=== PATIENT | female | born 1935 | race Caucasian/White ===

== ENCOUNTER 2017-04-28 10:23 | Emergency (ER) | payer MEDICARE, OTHER ==
[2017-04-28] MEDS ORDERED: HYDROmorphone 1 MG/ML Syringe IVPUSH ONE ×2 (10:32→10:54)
[2017-04-28] MEDS ORDERED: Sodium Chloride 0.9% 10 ML Syringe FLUSH PRN (10:32)
[2017-04-28] MEDS: Sodium Chloride 0.9% 1,000 ML IV SCH ×2 (10:45→12:00)
[2017-04-28] MEDS: Ondansetron 4 MG/2 ML SDV IVPUSH ONE ×2 (10:52→11:06)
[2017-04-28] MEDS ORDERED: Ondansetron 4 MG/2 ML SDV IVPUSH ONE (10:59)
[2017-04-28] MEDS ORDERED: Scopolamine 1.5 MG Transdermal Patch TRDERM ONE (11:02)
[2017-04-28] MEDS ORDERED: fentaNYL 100 MCG/2 ML SDV IVPUSH ONE (11:34)
[2017-04-28 11:39] LABS: CHLORIDE,CL 103 mmol/L (98-107); SODIUM,NA 140 mmol/L (136-145)
[2017-04-28] MEDS ORDERED: Iopamidol 612 MG/ML 100 ML Bottle IVPUSH ONE (11:43)
[2017-04-28] MEDS: Sodium Chloride 0.9% 500 ML IV ONE ×2 (12:00→14:03)
[2017-04-28] MEDS ORDERED: Promethazine Topical Gel 0.5 ML Syringe TOP ONE (12:28)
--- NOTE | 2017-04-28 12:49 | EDM.PDOC ---
ED HPI GENERAL MEDICAL PROBLEM - General Chief Complaint: Abdominal Pain Stated Complaint: LEFT SIDE PAIN Time Seen by Provider: 04/28/17 10:40 Source of Information: Reports: Patient History Limitations: Reports: No Limitations - History of Present Illness INITIAL COMMENTS - FREE TEXT/NARRATIVE: Patient is brought in by family for a sudden onset of nausea vomiting and dizziness. Patient states this started approximately 2 hours ago. Projectile vomiting has been occurring every 5-10 minutes. She is complaining of left upper quadrant pain radiating to her back. She states that she's had loose stools for the last month. Has not followed up with anyone regarding that. States this is a chronic issue when she eats. The discomfort and pain today is completely different than she is ever experience. She denies having any urinary frequency, hesitancy, or discharge. She states she is extremely dizzy when she has vomiting. Does have a history of vertigo motion sickness and vehicles but she feels this is different today. Denies any recent illnesses including fever chills body aches cough congestion. Onset: Sudden Onset Date: 04/28/17 Left Abdomen Pain Score (Numeric/FACES): 10 - Related Data Allergies Allergy/AdvReac Type Severity Reaction Status Date / Time atorvastatin calcium Allergy Muscle Verified 04/28/17 11:28 [From Lipitor] Aches VITAMIN B12 Allergy Hives Uncoded 08/22/15 10:04 Home Meds: Home Meds Levothyroxine [Synthroid] 50 mcg PO DAILY 12/14/14 [History] Aspirin [Halfprin] 81 mg PO DAILY 08/18/15 [History] Calcium Citrate/Vitamin D3 [Calcium Citrate + D] 1 tab PO DAILY 08/18/15 [ History] Fish Oil/[place]-3 Fatty Acids [Fish Oil 1,000 MG] 1,000 mg PO DAILY 08/18/15 [ History] Timolol Maleate [Timoptic 0.5% Ophth Soln] 1 drop EYEBOTH DAILY 08/18/15 [ History] Past Medical History HEENT History: Reports: Glaucoma Cardiovascular History: Reports: High Cholesterol Respiratory History: Reports: None Gastrointestinal History: Reports: GERD Genitourinary History: Reports: Renal Calculus Musculoskeletal History: Reports: Back Pain, Chronic Neurological History: Reports: None Psychiatric History: Reports: None Endocrine/Metabolic History: Reports: Hypothyroidism Hematologic History: Reports: None Immunologic History: Reports: None Oncologic (Cancer) History: Reports: Basal Cell Carcinoma Dermatologic History: Reports: None - Past Surgical History HEENT Surgical History: Reports: Cataract Surgery Social & Family History - Tobacco Use Smoking Status *Q: Never Smoker Used Tobacco, but Quit: No Second Hand Smoke Exposure: No - Alcohol Use Days Per Week of Alcohol Use: 0 Number of Drinks Per Day: 0 Total Drinks Per Week: 0 - Recreational Drug Use Recreational Drug Use: No Drug Use in Last 12 Months: No ED ROS GENERAL - Review of Systems Review Of Systems: See Below Constitutional: Reports: No Symptoms HEENT: Reports: No Symptoms Respiratory: Reports: No Symptoms Cardiovascular: Reports: No Symptoms GI/Abdominal: Reports: Nausea, Vomiting : Reports: No Symptoms Musculoskeletal: Reports: No Symptoms Skin: Reports: No Symptoms Neurological: Reports: No Symptoms ED EXAM, GENERAL - Physical Exam Exam: See Below Exam Limited By: No Limitations General Appearance: Alert, WD/WN, Moderate Distress Respiratory/Chest: No Respiratory Distress, Lungs Clear, Normal Breath Sounds, No Accessory Muscle Use, Chest Non-Tender Cardiovascular: Normal Peripheral Pulses, Regular Rate, Rhythm, No Edema, No Gallop, No JVD, No Murmur, No Rub GI/Abdominal: Guarding, Tender. No: Distended, Rigid, Rebound, Abnormal Bowel Sounds, Mass Back Exam: Normal Inspection, CVA Tenderness (L) Extremities: Normal Inspection, Normal Range of Motion, Non-Tender, No Pedal Edema, Normal Capillary Refill Neurological: Alert, Oriented, CN II-XII Intact, Normal Cognition Psychiatric: Normal Affect, Normal Mood Skin Exam: Warm, Dry, Intact, Normal Color, No Rash Course - Vital Signs Last Recorded V/S: Last Vital Signs Temp 36.2 C 04/28/17 10:30 Pulse 66 04/28/17 13:21 Resp 16 04/28/17 13:21 BP 168/89 H 04/28/17 13:21 Pulse Ox 99 04/28/17 13:21 - Orders/Labs/Meds Labs: Laboratory Tests 04/28/17 04/28/17 04/28/17 Range/Units 11:13 11:13 11:13 WBC 8.5 (4.0-10.0) x10^3/uL RBC 4.46 (4.00-5.50) x10^6/uL Hgb 13.4 (12.0-16.0) g/dL Hct 40.4 (33.0-47.0) % MCV 90.6 (78.0-93.0) fL MCH 30.0 (26.0-32.0) pg MCHC 33.2 (32.0-36.0) g/dL RDW Coeff of Ghislaine 13.7 (10.0-15.0) % Plt Count 214 (130-400) x10^3/uL Neut % (Auto) 76.7 (50.0-80.0) % Lymph % (Auto) 15.3 L (25.0-50.0) % [place] % (Auto) 7.3 (2.0-11.0) % Eos % (Auto) 0.5 (0.0-4.0) % Baso % (Auto) 0.2 (0.2-1.2) % Sodium 140 (136-145) mmol/L Potassium 3.8 (3.5-5.1) mmol/L Chloride 103 (98-107) mmol/L Carbon Dioxide 24 (21-32) mmol/L BUN 26 H (7-18) mg/dL Creatinine 0.9 (0.55-1.02) mg/dL Est Cr Clr Drug Dosing TNP Estimated GFR (MDRD) > 60 Glucose 140 H (74-106) mg/dL Lactic Acid 2.0 (0.4-2.0) mmol/L Calcium 8.6 (8.5-10.1) mg/dL Corrected Calcium 9.08 (8.5-10.1) mg/dL Total Bilirubin 1.0 (0.2-1.0) mg/dL AST 15 (15-37) U/L ALT 22 (14-59) U/L Alkaline Phosphatase 71 (46-116) U/L Total Protein 7.4 (6.4-8.2) g/dL Albumin 3.4 (3.4-5.0) g/dL Globulin 4.0 Albumin/Globulin Ratio 0.85 Meds: Medications Discontinued Medications Generic Name Dose Route Start Last Admin Trade Name Freq PRN Reason Stop Dose Admin Fentanyl 50 mcg 04/28/17 11:34 04/28/17 11:45 Sublimaze IVPUSH 04/28/17 11:35 50 mcg ONETIME ONE Administration Hydromorphone HCl 0.5 mg 04/28/17 10:32 04/28/17 10:52 Dilaudid IVPUSH 04/28/17 10:33 0.5 mg ONETIME ONE Administration Hydromorphone HCl 0.5 mg 04/28/17 10:54 04/28/17 10:57 Dilaudid IVPUSH 04/28/17 10:55 0.5 mg ONETIME ONE Administration Sodium Chloride 1,000 mls @ 125 mls/hr 04/28/17 11:00 04/28/17 12:00 Normal Saline IV 125 mls/hr ASDIRECTED LOUISE Administration Sodium Chloride 500 mls @ 500 mls/hr 04/28/17 12:28 04/28/17 12:00 Normal Saline IV 04/28/17 13:27 500 mls/hr ONETIME ONE Administration Iopamidol 100 ml 04/28/17 11:43 04/28/17 12:11 Isovue-300 (61%) IVPUSH 04/28/17 11:44 100 ml ONETIME ONE Administration Metoclopramide HCl 5 mg 04/28/17 13:02 04/28/17 13:13 Reglan IVPUSH 04/28/17 13:03 5 mg ONETIME ONE Administration Ondansetron HCl 4 mg 04/28/17 10:30 04/28/17 11:06 Zofran IVPUSH 04/28/17 10:31 4 mg ONETIME ONE Administration Ondansetron HCl 4 mg 04/28/17 10:59 04/28/17 13:08 Zofran IVPUSH 04/28/17 11:00 Not Given ONETIME ONE Promethazine HCl 0.5 ml 04/28/17 12:28 Phenergan TOP 04/28/17 12:29 ASDIRECTED ONE Scopolamine 1.5 mg 04/28/17 11:02 04/28/17 11:11 Transderm-Scop TRDERM 04/28/17 11:03 1.5 mg Q72H ONE Administration Sodium Chloride 10 ml 04/28/17 10:32 Saline Flush FLUSH ASDIRECTED PRN Keep Vein Open - Radiology Interpretation Free Text/Narrative:: Hydroureteronephrosis Departure - Departure Time of Disposition: 13:50 Disposition: DC/Tfer to Acute Hospital 02 Condition: Fair Clinical Impression: Hydroureteronephrosis - Discharge Information Referrals: Ale Callejas DO [Primary Care Provider] - Forms: ED Department Discharge, Interfacility Transfer EMTALA - Assessment/Plan Plan: 1. IV insertion 2. Antinausea IV pain management provided in the ER 3. Labs completed in the ER 4. CT completed in the ER 5. Consultation with the Center urology regarding CT results 6. Pt will be transferred to Dr. Lizarraga at [facility] in [place]: no further orders or recommendations. Will no fever/infection appreance will not start abx treatment at this time. 7. 1L bolus completed. 2L controlled rate started prior to transport.
[2017-04-28] MEDS ORDERED: Metoclopramide 10 MG/2 ML SDV IVPUSH ONE (13:02)
[2017-04-28 13:22] VITALS: BP 168/89
== END 2017-04-28 13:50 | disposition short-term general hospital (02) ==
LOC: VM.ED 10:23
DX: N13.2 Hydronephrosis with renal and ureteral calculous obstruction (principal); E78.00 Pure hypercholesterolemia, unspecified; E03.9 Hypothyroidism, unspecified; Z88.8 Allergy status to other drugs, medicaments and biological substances; Z79.82 Long term (current) use of aspirin; Z79.899 Other long term (current) drug therapy
CPT/HCPCS: 36415; 74177; 80053; 83605; 85025; 96361; 96374; 96375; 99285; A9270-GY; J1170; J2405; J2765; J3010; J7030; J7040; Q9967

== ENCOUNTER 2018-06-28 17:01 | Emergency (ER) | payer MEDICARE, OTHER ==
[2018-06-28] MEDS ORDERED: Nitroglycerin 0.4 MG Tab.SL SL PRN ×2 (17:20→18:16)
[2018-06-28] MEDS ORDERED: Aspirin 81 MG Tab.Chew PO ONE (17:21)
[2018-06-28] MEDS ORDERED: Sodium Chloride 0.9% 10 ML Syringe FLUSH PRN (17:37)
[2018-06-28 18:02] LABS: CHLORIDE,CL 104 mmol/L (98-107); SODIUM,NA 142 mmol/L (136-145)
[2018-06-28 18:03] LABS: ANION GAP 16.2 mmol/L (10-20)
--- NOTE | 2018-06-28 18:21 | EDM.PDOC ---
ED HPI GENERAL MEDICAL PROBLEM - General Chief Complaint: Chest Pain Stated Complaint: CHEST PAIN JAW HURTS HARD TO BREATH Time Seen by Provider: 06/28/18 17:05 Source of Information: Reports: Patient History Limitations: Reports: No Limitations - History of Present Illness INITIAL COMMENTS - FREE TEXT/NARRATIVE: Patient comes in the emergency department with chest pain. Patient states that she was sitting at home and developed the left sternal chest discomfort that radiated up to the left jaw region and down her left arm. She presented to the emergency department within 15 minutes of the onset of symptoms. Patient does not have a history of cardiac illness in the past. She states that she's never had chest pain before. Soreness of breath dizzy or lightheaded. She also denies any nausea. Patient denies any recent illnesses or travels. She can not think of anything that makes the pain worse or better. Quality: Reports: Pressure, Sharp, Stabbing Severity: Moderate Improves with: Reports: None Worsens with: Reports: None Associated Symptoms: Reports: No Other Symptoms - Related Data Allergies Allergy/AdvReac Type Severity Reaction Status Date / Time atorvastatin calcium Allergy Muscle Verified 06/28/18 18:41 [From Lipitor] Aches VITAMIN B12 Allergy Hives Uncoded 08/22/15 10:04 Home Meds: Home Meds Levothyroxine [Synthroid] 50 mcg PO DAILY 12/14/14 [History] Calcium Citrate/Vitamin D3 [Calcium Citrate + D] 1 tab PO DAILY 08/18/15 [ History] Fish Oil/[place]-3 Fatty Acids [Fish Oil 1,000 MG] 1,000 mg PO DAILY 08/18/15 [ History] Timolol Maleate [Timoptic 0.5% Ophth Soln] 1 drop EYEBOTH DAILY 08/18/15 [ History] Bimatoprost [LUMIGAN 0.01% Ophth Soln] 2.5 ml EYEBOTH 06/28/18 [History] Past Medical History HEENT History: Reports: Glaucoma Cardiovascular History: Reports: High Cholesterol Respiratory History: Reports: None Gastrointestinal History: Reports: GERD Genitourinary History: Reports: Renal Calculus Musculoskeletal History: Reports: Back Pain, Chronic Neurological History: Reports: None Psychiatric History: Reports: None Endocrine/Metabolic History: Reports: Hypothyroidism Hematologic History: Reports: None Immunologic History: Reports: None Oncologic (Cancer) History: Reports: Basal Cell Carcinoma Dermatologic History: Reports: None - Past Surgical History HEENT Surgical History: Reports: Cataract Surgery ED ROS GENERAL - Review of Systems Review Of Systems: See Below Constitutional: Reports: No Symptoms HEENT: Reports: No Symptoms Respiratory: Reports: No Symptoms Cardiovascular: Reports: Chest Pain Endocrine: Reports: No Symptoms GI/Abdominal: Reports: No Symptoms : Reports: No Symptoms Musculoskeletal: Reports: No Symptoms Skin: Reports: No Symptoms Neurological: Reports: No Symptoms Psychiatric: Reports: No Symptoms Hematologic/Lymphatic: Reports: No Symptoms Immunologic: Reports: No Symptoms ED EXAM, GENERAL - Physical Exam Exam: See Below Exam Limited By: No Limitations General Appearance: Alert, WD/WN, No Apparent Distress Throat/Mouth: Normal Inspection, Normal Lips, Normal Teeth Head: Atraumatic, Normocephalic Neck: Normal Inspection, Supple, Non-Tender, Full Range of Motion Respiratory/Chest: No Respiratory Distress, Lungs Clear, Normal Breath Sounds, No Accessory Muscle Use, Chest Non-Tender Cardiovascular: Normal Peripheral Pulses, Regular Rate, Rhythm Peripheral Pulses: 2+: Carotid (L), Carotid (R), Radial (L), Radial (R) GI/Abdominal: Normal Bowel Sounds, Soft, Non-Tender, No Distention, No Abnormal Bruit Back Exam: Normal Inspection, Full Range of Motion Extremities: Normal Inspection, Normal Range of Motion, Normal Capillary Refill Neurological: Alert, Oriented Psychiatric: Normal Affect, Normal Mood Skin Exam: Warm, Dry, Intact, Normal Color Course - Vital Signs Last Recorded V/S: Last Vital Signs Temp Pulse Resp BP 183/105 H 06/28/18 17:15 Pulse Ox - Orders/Labs/Meds Orders: Active Orders 24 hr Category Date Time Status Cardiac Monitoring [RC] . DIRECTED Care 06/28/18 17:37 Active EKG 12 Lead [EKG Documentation Completion] [RC] STAT Care 06/28/18 17:21 Active Chest 1V Frontal [CR] Stat Exams 06/28/18 17:32 Taken Nitroglycerin [Nitrostat] Med 06/28/18 17:20 Active 0.4 mg SL Q5M PRN Nitroglycerin [Nitrostat] Med 06/28/18 18:16 Active 0.4 mg SL Q5M PRN Sodium Chloride 0.9% [Saline Flush] Med 06/28/18 17:37 Active 10 ml FLUSH ASDIRECTED PRN Peripheral IV Insertion Adult [OM.PC] Stat Oth 06/28/18 17:37 Ordered Medication Orders Nitroglycerin (Nitrostat) 0.4 mg SL Q5M PRN PRN Reason: Chest Pain Stop: 06/29/18 17:21 Last Admin: 06/28/18 17:15 Dose: 0.4 mg Nitroglycerin (Nitrostat) 0.4 mg SL Q5M PRN PRN Reason: Chest Pain Sodium Chloride (Saline Flush) 10 ml FLUSH ASDIRECTED PRN PRN Reason: Keep Vein Open Labs: Laboratory Tests 06/28/18 06/28/18 06/28/18 Range/Units 17:21 17:21 17:27 WBC 7.4 (4.0-10.0) x10^3/uL RBC 4.63 (4.00-5.50) x10^6/uL Hgb 13.8 (12.0-16.0) g/dL Hct 43.2 (33.0-47.0) % MCV 93.3 H (78.0-93.0) fL MCH 29.8 (26.0-32.0) pg MCHC 31.9 L (32.0-36.0) g/dL RDW Coeff of Ghislaine 13.9 (10.0-15.0) % Plt Count 217 (130-400) x10^3/uL Neut % (Auto) 60.1 (50.0-80.0) % Lymph % (Auto) 27.1 (25.0-50.0) % [place] % (Auto) 10.9 (2.0-11.0) % Eos % (Auto) 1.5 (0.0-4.0) % Baso % (Auto) 0.4 (0.2-1.2) % Sodium 142 (136-145) mmol/L Potassium 4.2 (3.5-5.1) mmol/L Chloride 104 (98-107) mmol/L Carbon Dioxide 26 (21-32) mmol/L Anion Gap 16.2 (10-20) mmol/L BUN 26 H (7-18) mg/dL Creatinine 1.0 (0.55-1.02) mg/dL Est Cr Clr Drug Dosing TNP Estimated GFR (MDRD) 53 Glucose 152 H (74-106) mg/dL Calcium 8.5 (8.5-10.1) mg/dL Corrected Calcium 8.98 (8.5-10.1) mg/dL Total Bilirubin 0.6 (0.2-1.0) mg/dL AST 18 (15-37) U/L ALT 27 (14-59) U/L Alkaline Phosphatase 79 (46-116) U/L Creatine Kinase 88 (26-192) U/L POC Troponin I 0.01 (0.00-0.08) ng/mL NT-Pro-B Natriuret Pep 285 (<=450) pg/mL Total Protein 8.2 (6.4-8.2) g/dL Albumin 3.4 (3.4-5.0) g/dL Globulin 4.8 Albumin/Globulin Ratio 0.71 Meds: Medications Generic Name Dose Route Start Last Admin Trade Name Freq PRN Reason Stop Dose Admin Nitroglycerin 0.4 mg 06/28/18 17:20 06/28/18 17:15 Nitrostat SL 06/29/18 17:21 0.4 mg Q5M PRN Administration Chest Pain Nitroglycerin 0.4 mg 06/28/18 18:16 Nitrostat SL Q5M PRN Chest Pain Sodium Chloride 10 ml 06/28/18 17:37 Saline Flush FLUSH ASDIRECTED PRN Keep Vein Open Discontinued Medications Generic Name Dose Route Start Last Admin Trade Name Freq PRN Reason Stop Dose Admin Aspirin 324 mg 06/28/18 17:21 06/28/18 17:22 Aspirin PO 06/28/18 17:22 324 mg ONETIME ONE Administration Departure - Departure Time of Disposition: 18:50 Disposition: DC/Tfer to Acute Hospital 02 Reason for Transfer *Q: Other Condition: Good Clinical Impression: Chest pain Qualifiers: Chest pain type: other chest pain Qualified Code(s): R07.89 - Other chest pain ; R07.8 - Other chest pain Forms: ED Department Discharge, Interfacility Transfer EMTALA - Problem List Review Problem List Initiated/Reviewed/Updated: Yes - My Orders Last 24 Hours: My Active Orders 06/28/18 17:20 Nitroglycerin [Nitrostat] 0.4 mg SL Q5M PRN 06/28/18 17:21 EKG 12 Lead [EKG Documentation Completion] [RC] STAT 06/28/18 17:32 Chest 1V Frontal [CR] Stat 06/28/18 17:37 Cardiac Monitoring [RC] . DIRECTED Sodium Chloride 0.9% [Saline Flush] 10 ml FLUSH ASDIRECTED PRN Peripheral IV Insertion Adult [OM.PC] Stat 06/28/18 18:16 Nitroglycerin [Nitrostat] 0.4 mg SL Q5M PRN - Assessment/Plan Last 24 Hours: My Active Orders 06/28/18 17:20 Nitroglycerin [Nitrostat] 0.4 mg SL Q5M PRN 06/28/18 17:21 EKG 12 Lead [EKG Documentation Completion] [RC] STAT 06/28/18 17:32 Chest 1V Frontal [CR] Stat 06/28/18 17:37 Cardiac Monitoring [RC] . DIRECTED Sodium Chloride 0.9% [Saline Flush] 10 ml FLUSH ASDIRECTED PRN Peripheral IV Insertion Adult [OM.PC] Stat 06/28/18 18:16 Nitroglycerin [Nitrostat] 0.4 mg SL Q5M PRN Assessment:: 1. chest pain Plan: 1. EKG completed in ER. Results reviewed with the pt 2. Labs completed in ER. results reviewed with the pt 3. 324mg baby ASA given 4. Nitro sublingal given- relief noted. chest pain gone completely with minimal pain in jaw remaining. Repeat chest pain 2nd nitro given with relief again only lasting a short period of time before symptoms returning 5. Nitro drip started to help with chest pain 5. Consultation completed with [facility] with Dr. Issa who agrees to admit the pt for further medical/cardiac management 6. All questions and concerned addressed prior to discharge
[2018-06-28] MEDS ORDERED: Nitroglycerin/D5W 25 MG/250 ML BOTTLE ONE (18:35)
[2018-06-28] MEDS ORDERED: Nitroglycerin/D5W 25 MG/250 ML BOTTLE IV SCH (18:45)
[2018-06-28 19:01] VITALS: BP 121/73
[2018-06-28] MEDS ORDERED: Ondansetron 4 MG/2 ML SDV IVPUSH ONE (19:12)
[2018-06-28] MEDS ORDERED: Ondansetron 4 MG/2 ML SDV ONE (19:16)
--- NOTE | 2018-06-29 10:09 | CR ---
[id number] RAD/RAD Chest PA or AP 1V EXAM: RAD Chest PA or AP 1V INDICATION: CHEST PAIN. COMPARISON: None. DISCUSSION: Cardiomediastinal silhouette is normal in size and contour. No infiltrate, effusion, pneumothorax, or edema. Pulmonary hyperinflation. IMPRESSION: No acute cardiopulmonary abnormality. Surya Lou DO 06/29/18 1008 Thank you for allowing us to participate in the care of your patient.
== END 2018-06-28 19:10 | disposition short-term general hospital (02) ==
LOC: VM.ED 17:01
DX: R07.89 Other chest pain (principal); Z88.8 Allergy status to other drugs, medicaments and biological substances; Z79.899 Other long term (current) drug therapy
CPT/HCPCS: 36415; 71045; 80053; 82550; 83880; 84484; 85025; 93005; 96365; 96375; 99285; A9270; J3490; 99284-GF

== ENCOUNTER 2020-06-18 10:46 | Emergency (ER) | payer MEDICARE, OTHER ==
[2020-06-18 11:16] VITALS: BP 167/80; PULSE 69
[2020-06-18 11:39] LABS: PTT,PARTIAL THROMBOPLSTIN TIME 25.9 SEC (25.6-32.8)
[2020-06-18 11:45] LABS: CHLORIDE,CL 103 mmol/L (98-107); SODIUM,NA 141 mmol/L (136-145)
[2020-06-18 11:46] LABS: ANION GAP 13.1 mmol/L (5-15)
--- NOTE | 2020-06-18 12:02 | EDM.PDOC ---
ED HPI GENERAL MEDICAL PROBLEM - General Chief Complaint: Upper Extremity Injury/Pain Stated Complaint: WANTS A BLOOD DRAW- Time Seen by Provider: 06/18/20 11:15 Source of Information: Reports: Patient, Family History Limitations: Reports: No Limitations - History of Present Illness INITIAL COMMENTS - FREE TEXT/NARRATIVE: Pt. presents to ER with complaints of L arm pain. Pt. states that the discomfort started in the night and woke her from sleep. She states that the discomfort was located in the region of the elbow/upper forearm area. No pain was located in the chest, shoulder, or upper arm. Pt. 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 Pt. states that the pain was presents for several hours and resolved on its own. Pt. denies any trauma that she is aware of. She did take aspirin when the discomfort started. Denies any paresthesias, states that the discomfort was sharp in nature. States that the discomfort was not exacerbated by movement. Denies any shortness of breath, nausea, lightheadedness, palpitations. Onset: Today Onset Date: 06/18/20 Location: Reports: Upper Extremity, Left Quality: Reports: Sharp, Stabbing Severity: Moderate Associated Symptoms: Denies: Chest Pain, Cough, Diaphoresis, Fever/Chills, Malaise, Nausea/Vomiting, Rash, Shortness of Breath, Syncope, Weakness Treatments [employer]: Reports: Aspirin - Related Data Allergies Allergy/AdvReac Type Severity Reaction Status Date / Time atorvastatin calcium Allergy Muscle Verified 06/18/20 11:19 [From Lipitor] Aches VITAMIN B12 Allergy Hives Uncoded 06/18/20 11:19 Home Meds: Home Meds Levothyroxine [Synthroid] 50 mcg PO DAILY 12/14/14 [History] Calcium Citrate/Vitamin D3 [Calcium Citrate + D] 1 tab PO DAILY 08/18/15 [History] Fish Oil/[place]-3 Fatty Acids [Fish Oil 1,000 MG] 1,000 mg PO DAILY 08/18/15 [History] Aspirin [Halfprin] 81 mg PO DAILY 08/12/18 [History] Clopidogrel [Plavix] 75 mg PO DAILY 08/12/18 [History] Metoprolol Tartrate [Lopressor] 12.5 mg PO Q12HR 08/12/18 [History] Rosuvastatin [Crestor] 5 mg PO DAILY 08/12/18 [History] lisinopriL [Prinivil] 2.5 mg PO DAILY 08/12/18 [History] Past Medical History HEENT History: Reports: Glaucoma Cardiovascular History: Reports: High Cholesterol, Stents Respiratory History: Reports: None Gastrointestinal History: Reports: GERD Genitourinary History: Reports: Renal Calculus Musculoskeletal History: Reports: Back Pain, Chronic Neurological History: Reports: None Psychiatric History: Reports: None Endocrine/Metabolic History: Reports: Hypothyroidism Hematologic History: Reports: None Immunologic History: Reports: None Oncologic (Cancer) History: Reports: Basal Cell Carcinoma Dermatologic History: Reports: None - Past Surgical History Head Surgeries/Procedures: Reports: None HEENT Surgical History: Reports: Cataract Surgery GI Surgical History: Reports: Cholecystectomy, Colonoscopy, EGD Female Surgical History: Reports: Lithotripsy/ESWL Endocrine Surgical History: Reports: None Neurological Surgical History: Reports: None Social & Family History - Tobacco Use Tobacco Use Status *Q: Unknown Ever Used Tobacco Review of Systems - Review of Systems Review Of Systems: Comprehensive ROS is negative, except as noted in HPI. ED EXAM, GENERAL - Physical Exam Exam: See Below Exam Limited By: No Limitations General Appearance: Alert, WD/WN, No Apparent Distress Respiratory/Chest: No Respiratory Distress, Lungs Clear, Normal Breath Sounds, No Accessory Muscle Use, Chest Non-Tender Cardiovascular: Normal Peripheral Pulses, Regular Rate, Rhythm, No Edema, No Gallop, No JVD, No Murmur, No Rub Extremities: Normal Inspection, Normal Range of Motion, Normal Capillary Refill, Other (Unable to reproduce pain with manipulation of the L shoulder or elbow. No deformity noted. CMS intact. No duskiness to the extremity. Radial pulse on left is strong. To note, pain was resolved hours before coming to ER.) #1 Interpretation Rhythm: NSR [place]: Normal P-Wave: Present QRS: Normal ST-T: Normal QT: Normal Course - Vital Signs Last Recorded V/S: Last Vital Signs Temp 36.4 C 06/18/20 11:11 Pulse 69 06/18/20 11:11 Resp 14 06/18/20 11:11 BP 167/80 H 06/18/20 11:11 Pulse Ox 97 06/18/20 11:11 - Orders/Labs/Meds Orders: Active Orders 24 hr Category Date Time Status EKG Documentation Completion [RC] STAT Care 06/18/20 11:02 Active Labs: Laboratory Tests 06/18/20 06/18/20 06/18/20 Range/Units 11:15 11:15 11:15 WBC 5.1 (4.0-10.0) x10^3/uL RBC 4.51 (4.00-5.50) x10^6/uL Hgb 13.6 (12.0-16.0) g/dL Hct 41.2 (33.0-47.0) % MCV 91.4 (78.0-93.0) fL MCH 30.2 (26.0-32.0) pg MCHC 33.0 (32.0-36.0) g/dL RDW Coeff of Ghislaine 13.7 (10.0-15.0) % Plt Count 202 (130-400) x10^3/uL Neut % (Auto) 56.4 (50.0-80.0) % Lymph % (Auto) 27.5 (25.0-50.0) % [place] % (Auto) 11.5 H (2.0-11.0) % Eos % (Auto) 4.0 (0.0-4.0) % Baso % (Auto) 0.6 (0.2-1.2) % PT 10.0 (9.9-12.5) SEC INR 0.9 L (2.0-3.5) APTT 25.9 (25.6-32.8) SEC Sodium 141 (136-145) mmol/L Potassium 4.1 (3.5-5.1) mmol/L Chloride 103 (98-107) mmol/L Carbon Dioxide 29 (21-32) mmol/L Anion Gap 13.1 (5-15) mmol/L BUN 15 (7-18) mg/dL Creatinine 0.8 (0.55-1.02) mg/dL Est Cr Clr Drug Dosing TNP Estimated GFR (MDRD) > 60 Glucose 96 (70-99) mg/dL Calcium 8.9 (8.5-10.1) mg/dL Corrected Calcium 9.22 (8.5-10.1) mg/dL Total Bilirubin 1.1 H (0.2-1.0) mg/dL AST 22 (15-37) U/L ALT 25 (14-59) U/L Alkaline Phosphatase 65 (46-116) U/L Troponin I High Sens 5 (<=51) ng/L Total Protein 7.8 (6.4-8.2) g/dL Albumin 3.6 (3.4-5.0) g/dL Globulin 4.2 Albumin/Globulin Ratio 0.86 Departure - Departure Time of Disposition: 11:45 Disposition: Home, Self-Care 01 Clinical Impression: Arm pain - Discharge Information Referrals: Ale Callejas DO [Primary Care Provider] - Forms: ED Department Discharge Additional Instructions: Home to rest. Recheck in the clinic in 7-10 days Return to ER if you have any chest pain, increased discomfort, lightheadedness, or if you feel faint. Sepsis Event Note (ED) - Evaluation Sepsis Screening Result: No Definite Risk - Focused Exam Vital Signs: Vital Signs Temp Pulse Resp BP Pulse Ox 06/18/20 11:11 36.4 C 69 14 167/80 H 97 - Problem List Review Problem List Initiated/Reviewed/Updated: Yes - My Orders Last 24 Hours: My Active Orders 06/18/20 11:02 EKG Documentation Completion [RC] STAT - Assessment/Plan Last 24 Hours: My Active Orders 06/18/20 11:02 EKG Documentation Completion [RC] STAT Plan: Home to rest. Recheck in the clinic in 7-10 days Return to ER if you have any chest pain, increased discomfort, lightheadedness, or if you feel faint.
== END 2020-06-18 11:58 | disposition home or self-care (01) ==
LOC: VM.ED 10:46
DX: M79.602 Pain in left arm (principal); E03.9 Hypothyroidism, unspecified; I10 Essential (primary) hypertension; Z95.5 Presence of coronary angioplasty implant and graft; Z79.899 Other long term (current) drug therapy; Z79.82 Long term (current) use of aspirin; Z79.02 Long term (current) use of antithrombotics/antiplatelets; Z88.8 Allergy status to other drugs, medicaments and biological substances
CPT/HCPCS: 36415; 80053; 84484; 85025; 85610; 85730; 93005; 93010; 99283-25; 99284

== ENCOUNTER 2022-03-04 10:00 | Emergency (ER) | payer MEDICARE, OTHER ==
[2022-03-04] MEDS: Take Home: Amoxicillin 875 MG Tab, 2 Tab Pack PO ONE (10:20)
[2022-03-04 11:15] VITALS: BP 151/73; PULSE 77
== END 2022-03-04 10:25 | disposition home or self-care (01) ==
LOC: VM.ED 10:00
DX: J02.9 Acute pharyngitis, unspecified (principal); E78.00 Pure hypercholesterolemia, unspecified; Z88.8 Allergy status to other drugs, medicaments and biological substances; Z79.899 Other long term (current) drug therapy; Z79.82 Long term (current) use of aspirin; Z90.49 Acquired absence of other specified parts of digestive tract
CPT/HCPCS: 99282; A9270-GY

== ENCOUNTER 2024-08-12 09:03 | Emergency (ER) | payer MEDICARE, OTHER ==
[2024-08-12 09:37] LABS: BASOPHILS PERCENT AUTO 0.4 % (0.2-1.2); EOSINOPHILS ABSOLUTE AUTO 0.1 x10^3/uL (0.0-0.5); HEMATOCRIT 39.1 % (33.0-47.0); HEMOGLOBIN 12.8 g/dL (12.0-16.0); IMMATURE GRAN ABSOLUTE AUTO 0.01 x10^3/uL (0.00-0.07); LYMPHOCYTES ABSOLUTE AUTO 1.5 x10^3/uL (1.0-4.8); LYMPHOCYTES PERCENT AUTO 30.4 % (25.0-50.0); MEAN CORPUSCULAR HEMOGLOBIN 29.5 pg (26.0-32.0); MEAN CORPUSCULAR HGB CONC 32.7 g/dL (32.0-36.0); MEAN CORPUSCULAR VOLUME 90.1 fL (78.0-93.0); MONOCYTES ABSOLUTE AUTO 0.5 x10^3/uL (0.0-0.8); MONOCYTES PERCENT AUTO 9.5 % (2.0-11.0); NEUTROPHILS ABSOLUTE AUTO 2.9 x10^3/uL (1.8-7.7); NEUTROPHILS PERCENT AUTO 58.5 % (50.0-80.0); PLATELET COUNT,PLT 163 x10^3/uL (130-400); RED BLOOD CELL COUNT 4.34 x10^6/uL (4.00-5.50)
[2024-08-12 10:03] LABS: ALBUMIN 3.8 g/dL (3.4-5.0); BILIRUBIN TOTAL 1.5 mg/dL (0.2-1.0); CALCIUM 9.3 mg/dL (8.5-10.1); CREATININE 0.8 mg/dL (0.55-1.02); EST CRCL DRUG DOSING (CG) 40.98 mL/min; PROTEIN TOTAL,TP 7.6 g/dL (6.4-8.2)
[2024-08-12] MEDS: Acetaminophen 500 MG Tab PO ONE (10:15)
[2024-08-12] MEDS: Cyclobenzaprine 10 MG Tab PO ONE (10:16)
[2024-08-12 10:17] VITALS: BP 155/75; PULSE 66
== END 2024-08-12 11:03 | disposition home or self-care (01) ==
LOC: VM.ED 09:03
DX: M54.12 Radiculopathy, cervical region (principal); E78.00 Pure hypercholesterolemia, unspecified; E03.9 Hypothyroidism, unspecified; Z88.8 Allergy status to other drugs, medicaments and biological substances; Z79.82 Long term (current) use of aspirin; Z79.890 Hormone replacement therapy; Z79.899 Other long term (current) drug therapy; Z90.49 Acquired absence of other specified parts of digestive tract
CPT/HCPCS: 36415; 72125; 80053; 84484; 85025; 93005; 93010; 99284; A9270-GY

== ENCOUNTER 2025-01-19 12:44 | Emergency (ER) | payer MEDICARE, OTHER ==
[2025-01-19 13:04] LABS: BASOPHILS ABSOLUTE AUTO 0.0 x10^3/uL (0.0-0.2); BASOPHILS PERCENT AUTO 0.6 % (0.2-1.2); EOSINOPHILS ABSOLUTE AUTO 0.2 x10^3/uL (0.0-0.5); EOSINOPHILS PERCENT AUTO 3.9 % (0.0-4.0); IMMATURE GRAN ABSOLUTE AUTO 0.01 x10^3/uL (0.00-0.07); IMMATURE GRAN PERCENT AUTO 0.20 % (0.00-0.43); LYMPHOCYTES ABSOLUTE AUTO 1.1 x10^3/uL (1.0-4.8); LYMPHOCYTES PERCENT AUTO 23.0 % (25.0-50.0); MONOCYTES ABSOLUTE AUTO 0.6 x10^3/uL (0.0-0.8); MONOCYTES PERCENT AUTO 12.0 % (2.0-11.0); NEUTROPHILS ABSOLUTE AUTO 2.9 x10^3/uL (1.8-7.7); NEUTROPHILS PERCENT AUTO 60.3 % (50.0-80.0); PLATELET COUNT,PLT 151 x10^3/uL (130-400); RED BLOOD CELL COUNT 3.99 x10^6/uL (4.00-5.50); WHITE BLOOD CELL COUNT,WBC 4.8 x10^3/uL (4.0-10.0)
[2025-01-19 13:18] LABS: INR 0.9 (0.9-1.1)
[2025-01-19 13:29] LABS: A/G RATIO 0.94; ALANINE AMINOTRANSFERASE,ALT 19.0 U/L (14-59); ASPARTATE AMNIOTRANSFERASE,AST 17.0 U/L (15-37); BILIRUBIN TOTAL 1.1 mg/dL (0.2-1.0); BLOOD UREA NITROGEN,BUN 25.0 mg/dL (7-18); CARBON DIOXIDE,CO2 28.0 mmol/L (21-32); CHLORIDE,CL 105.0 mmol/L (98-107); CREATININE 0.9 mg/dL (0.55-1.02); EST CRCL DRUG DOSING (CG) 36.43 mL/min; ESTIMATED GFR 62.0 mL/min (>=60); GLUCOSE RANDOM 125.0 mg/dL (70-99); POTASSIUM,K 3.9 mmol/L (3.5-5.1); PROTEIN TOTAL,TP 6.6 g/dL (6.4-8.2); SODIUM,NA 142.0 mmol/L (136-145)
[2025-01-19 14:07] VITALS: BP 148/68; PULSE 60
== END 2025-01-19 13:45 | disposition home or self-care (01) ==
LOC: VM.ED 12:44
DX: R55 Syncope and collapse (principal); I10 Essential (primary) hypertension; I25.10 Atherosclerotic heart disease of native coronary artery without angina pectoris; E78.00 Pure hypercholesterolemia, unspecified; E03.9 Hypothyroidism, unspecified; M19.90 Unspecified osteoarthritis, unspecified site; Z79.899 Other long term (current) drug therapy; Z79.890 Hormone replacement therapy; Z88.8 Allergy status to other drugs, medicaments and biological substances; Z90.49 Acquired absence of other specified parts of digestive tract
CPT/HCPCS: 36415; 80053; 84484; 85025; 85610; 93010; 99284; 99285